=== PATIENT | male | born 1955 | race Asian ===

== ENCOUNTER 2016-06-28 05:15 | Day surgery (SDC) | payer OTHER ==
[2016-06-15 08:44] VITALS: BMI 29.6
[2016-06-28] MEDS ORDERED: PROPOFOL 20 ML ONE (08:57)
[2016-06-28] MEDS ORDERED: MIDAZOLAM HCL 2 MG/2 ML SINGLE DOSE VIAL ONE (08:57)
[2016-06-28] MEDS ORDERED: ceFAZolin SODIUM 1 GM VIAL IVPB ONE (09:15)
[2016-06-28] MEDS ORDERED: ceFAZolin SODIUM 1 GM VIAL ONE (09:16)
--- NOTE | 2016-06-28 09:37 | HP ---
History & Physical Update - History History: No Change - Physical Physical: No Change - Assessment Assessment: No Change - Plan Plan: No Change
[2016-06-28] MEDS ORDERED: ACETAMINOPHEN 1000 MG/100 ML VIAL (NON FORMULARY) IVPB ONE (09:38)
[2016-06-28] MEDS ORDERED: DEXTROSE 5%-0.45% SALINE 1,000 ML IV SCH (09:45)
[2016-06-28] MEDS ORDERED: ACETAMINOPHEN 325 MG TABLET (FP) PO PRN (09:51)
[2016-06-28] MEDS ORDERED: ONDANSETRON 4 MG/2 ML VIAL IVPUSH PRN (09:51)
[2016-06-28] MEDS ORDERED: LACTATED RINGERS SOLUTION 1,000 ML IV SCH (10:00)
[2016-06-28] MEDS ORDERED: oxyCODONE HCL 5 MG TABLET PO ONE (10:42)
[2016-06-28 11:26] VITALS: TEMP 98.3
[2016-06-28 12:48] VITALS: BP 131/69; PULSE 73
--- NOTE | 2016-08-02 10:37 | OP ---
DATE OF OPERATION: 06/28/2016 SURGEON: Mathieu Vann MD ANESTHESIA: General. PREOPERATIVE DIAGNOSIS: Kidney stone on the left. POSTOPERATIVE DIAGNOSIS: Kidney stone on the left. PROCEDURE: Left extracorporeal shockwave lithotripsy. ESTIMATED BLOOD LOSS: Minimal. FINDINGS: Stone. PREOPERATIVE INDICATIONS: The patient is a 61-year-old male with a large stone in his left kidney. Comes to the OR for lithotripsy. OPERATION: The patient was brought to the OR. Placed on the table in the supine position. Given general anesthesia and timeout was performed. Antibiotics were also given. The stone was visualized on fluoroscopy and targeted; 2500 shocks were applied to the stone. The patient tolerated the procedure well. He was woken up. MATHIEU VANN M.D. [id number]
== END 2016-06-28 12:30 | disposition home or self-care (01) ==
LOC: JASU-SURG 05:15
PROVIDERS: ATTEND Urology
PROC: 0TF4XZZ Fragmentation in Left Kidney Pelvis, External Approach (ICD-10-PCS; principal; 2016-06-28 09:00)
DX: N20.0 Calculus of kidney (principal)
CPT/HCPCS: 94760